=== PATIENT | female | born 1980 | race African-American/Black ===

== ENCOUNTER 2020-08-16 10:20 | Emergency (ER) | payer BC ==
--- NOTE | 2020-08-16 11:25 | EDM.PDOC ---
ED HPI GENERAL MEDICAL PROBLEM - General Stated Complaint: DOESN'T FEEL WELL Time Seen by Provider: 08/16/20 11:00 Source of Information: Reports: Patient - History of Present Illness INITIAL COMMENTS - FREE TEXT/NARRATIVE: Jada is a 39 y/o female who comes to the ER with a 2-3 day history of headache, bodyaches, and dizziness. She also have had some left leg pain. No fever. Denies any cough, but has had some nausea. Has not taken any meds. Headache Pain Score (Numeric/FACES): 7 - Related Data Allergies Allergy/AdvReac Type Severity Reaction Status Date / Time No Known Allergies Allergy Verified 08/16/20 11:05 Home Meds: Home Meds Amoxicillin 875 mg PO BID 10 Days #20 tablet 08/16/20 [Rx] Review of Systems - Review of Systems Review Of Systems: See Below Constitutional: Reports: No Symptoms Eyes: Reports: No Symptoms Ears: Reports: Dizziness Nose: Reports: Congestion, Clear Discharge Mouth/Throat: Reports: No Symptoms Respiratory: Reports: No Symptoms Cardiovascular: Reports: No Symptoms GI/Abdominal: Reports: Decreased Appetite, Nausea Genitourinary: Reports: No Symptoms Musculoskeletal: Reports: Leg Pain (Left), Other (Body Aches) Skin: Reports: No Symptoms Neurological: Reports: Dizziness, Headache Psychiatric: Reports: No Symptoms ED EXAM, GENERAL - Physical Exam Exam: See Below Exam Limited By: No Limitations General Appearance: Alert, WD/WN, No Apparent Distress (Adult female) Eye Exam: Bilateral Eye: PERRL Ears: Normal External Exam, Normal Canal, Hearing Grossly Normal Ear Exam: Right Ear: TM Red, Left Ear: TM normal (Right TM, reddened and immobile) Nose: Normal Inspection, Normal Mucosa Throat/Mouth: Normal Lips (Erythematous), Normal Oropharynx, Normal Voice Head: Atraumatic, Normocephalic Neck: Normal Inspection, Supple, Non-Tender Respiratory/Chest: No Respiratory Distress, Lungs Clear, Chest Non-Tender Cardiovascular: Normal Peripheral Pulses, Regular Rate, Rhythm, No Murmur GI/Abdominal: Normal Bowel Sounds, Soft, Non-Tender (Female) Exam: Deferred Rectal (Female) Exam: Deferred Back Exam: Normal Inspection Extremities: Normal Inspection, Normal Range of Motion, Normal Capillary Refill Neurological: Alert, Oriented, CN II-XII Intact, Normal Cognition Psychiatric: Normal Affect, Normal Mood Skin Exam: Warm, Dry, Intact, Normal Color Lymphatic: No Adenopathy Course - Vital Signs Text/Narrative:: 1100 The patient was seen by the [employer]. COVID test done and as negative. Results reviewed with the patient. Will treat her with Amoxicillin for Sinusitis and ROM. Work note written. Her questions were answered, she was given written discharge instructions and left the ER in stable condition. Last Recorded V/S: Last Vital Signs Temp 36.6 C 08/16/20 10:30 Pulse 99 08/16/20 10:30 Resp 16 08/16/20 10:30 BP 107/77 08/16/20 10:30 Pulse Ox 98 08/16/20 10:30 - Orders/Labs/Meds Orders: Active Orders 24 hr Category Date Time Status CORONAVIRUS COVID-19 RAPID [MOLEC] Stat Lab 08/16/20 11:01 Ordered Departure - Departure Time of Disposition: 11:25 Disposition: Home, Self-Care 01 Condition: Good Clinical Impression: Acute sinusitis Qualifiers: Sinusitis location: unspecified location Recurrence: not specified as recurrent Qualified Code(s): J01.90 - Acute sinusitis, unspecified Right otitis media Qualifiers: Otitis media type: unspecified Qualified Code(s): H66.91 - Otitis media, unspecified, right ear - Discharge Information *PRESCRIPTION DRUG MONITORING PROGRAM REVIEWED*: Not Applicable *COPY OF PRESCRIPTION DRUG MONITORING REPORT IN PATIENT FEDE: Not Applicable Prescriptions: Amoxicillin 875 mg PO BID 10 Days #20 tablet Instructions: Sinusitis, Adult, Otitis Media, Adult Forms: ED Return to Work/School Form Sepsis Event Note (ED) - Evaluation Sepsis Screening Result: No Definite Risk - Focused Exam Vital Signs: Vital Signs Temp Pulse Resp BP Pulse Ox 08/16/20 10:30 36.6 C 99 16 107/77 98 - My Orders Last 24 Hours: My Active Orders 08/16/20 11:01 CORONAVIRUS COVID-19 RAPID [MOLEC] Stat - Assessment/Plan Last 24 Hours: My Active Orders 08/16/20 11:01 CORONAVIRUS COVID-19 RAPID [MOLEC] Stat Assessment:: 1)Acute Sinusitis, Unspecified 2)Right Otitis Media Plan: -Amoxicillin 875mg po BID #20 (Rx) -Try the following over the counter meds as directed on the package" -Pseudoephedrine, Fluticasone nasal spray (Flonase or Nasocort) 30mg oral rui 6 hours prn #12 (Rx))] -Ibuprofen or Acetaminophen as needed -Saline nasal rinses with Neti-pot or Asha-Med rinse bottle -Rest. Work note written for you to rest for the next 2 days. -Stay well hydrated -Return to the clinic if symptoms not better or come back to the ER for any concerns
== END 2020-08-16 11:40 | disposition home or self-care (01) ==
LOC: VM.ED 10:20
DX: J01.90 Acute sinusitis, unspecified (principal); H66.91 Otitis media, unspecified, right ear; Z20.822 Contact with and (suspected) exposure to COVID-19
CPT/HCPCS: 99283; 99284; U0002